=== PATIENT | male | born 1925 | race Caucasian/White ===

== ENCOUNTER 2016-09-09 10:42 | Outpatient (CLI) | payer MEDICARE, OTHER ==
[~2016-09-09] VITALS: Ht 167.6 cm; Wt 68.2 kg
[~2016-09-09 10:42] MED LIST: ASPI-664 PO; CLOP75TA27 PO; CYAN100080 PO; FLAX100016 PO; GABA100C14 PO; LANS30CA PO; LORA10TA3 PO; LOSA25TA5 PO; METO25TA7 PO; RANI300T PO; TERA5CAP3 PO; UBID300C PO; focus factor
[2016-09-09 10:45] VITALS: Ht 167.6 cm; Wt 68.2 kg
[2016-09-09 10:46] VITALS: BP 154/65; PULSE 60; RESP 18
--- NOTE | 2016-09-09 11:05 | PN ---
Date/Time of Note Date/Time of Note DATE: 09/09/16 TIME: 10:57 Assessment/Plan Assessment/Plan Assessment/Plan [facility] Progress Note Date of Service: 09/09/16 Today's Impression & Plan: Overall doing well post lap margy 08/27/16 that followed CBD stenting with Dr. Yost. Fortunately, no obvious evidence for major post operative complications or wound problems. Minor pain reported is with movement and no associated signs of hernia, wound infection or other major issues. Most lateral right side 5 mm port site with slight erythema around the skin opening (note this is completely asymptomatic for the patient) does not appear to be an infection. I suspect all these issues with resolve in short order. With above assessment, I've recommended the following for today: 1. F/u with PCP 2. F/u with us prn; please call if symptoms do not resolve or worsen for further f/u Thank you again for your great care of this very pleasant patient and wonderful family. If there are any questions, please feel free to call me at [phone]. TOTAL VISIT TIME: 20 minutes of which more than half was spent in [id number] discussion with the patient, possibly including family, as well as coordination of care between multiple physicians and providers. Disclaimer: Inadvertent spelling or grammatical errors are likely due to EHR/ dictation software use and do not reflect on the overall quality of patient care. Updated Clinical Summary: A very pleasant 89-year-old gentleman with comorbid issues including cardiac disease, status post stenting, as well as recent episodes of pancreatitis who shows a clinical picture that was initially concerning for a malignant obstructive process, but EUS findings on 07/06/16 did not suggest obvious malignant process. S/p lap margy at [facility] for chronic cholecystitis and no evidence for malignancy). Subjective: No major events or complaints other than above mentioned abdominal incisional pain, mainly around the midline upper abdomen; no n/v/d; no sob or cp; + flatus ; + BM and normal; + activity Objective: Vitals: See below Exam: GENERAL: On exam, the patient was sitting in a chair and appeared to be comfortable and in no acute distress. ABDOMEN: Soft, nontender and nondistended. There are no peritoneal signs or guarding. Incisions c/d/i w/o e/e/d/h other than slight erythema around the right lateral port site. SKIN: Skin appears to be pink and feels warm to touch. NEUROLOGIC: Patient is awake, alert, and follows commands appropriately. Exam/Review of Systems Vital Signs Vitals Vital Signs Date Time Temp Pulse Resp B/P Pulse Ox O2 Delivery O2 Flow Rate FiO2 09/09/16 10:46 97.4 60 18 154/65 98 Room Air SCOOTER BOSS M.D. Sep 09, 2016 11:05
== END 2016-09-09 16:26 | disposition home or self-care (01) ==
LOC: HPC 10:42
PROVIDERS: ATTEND Transplant Surgery
DX: K85.90 Acute pancreatitis without necrosis or infection, unspecified (principal); K81.9 Cholecystitis, unspecified
CPT/HCPCS: G0463